=== PATIENT | male | born 1995 | race Two or more races ===

== ENCOUNTER 2019-07-25 08:51 | Emergency (ER) | payer SELFPAY ==
[2019-07-25 09:06] VITALS: TEMP 97.8; BMI 22.7
--- NOTE | 2019-07-25 09:53 | PDOC ---
Documentation entered by Lida Pyle SCRIBE, acting as scribe for Lizzie Pandey MD. Lizzie Pandey MD: This documentation has been prepared by the Edenilson mcfarlane Adrianna, SCRIBE, under my direction and personally reviewed by me in its entirety. I confirm that the documentation accurately reflects all work, treatment, procedures, and medical decision making performed by me. Attending Attestation - Resident Resident Name: Nigel Sosa - ED Attending Attestation I have performed the following: I have examined & evaluated the patient, The case was reviewed & discussed with the resident, I agree w/resident's findings & plan, Exceptions are as noted - HPI HPI: 07/25/19 09:39 24 yo with h/o etoh abuse, here with c/o etoh withdrawals. was last sober in may 2019, however only lasted on month. pt reports heavy daily etoh use, last drink was Monday 4 days prior. drinks 12 pack / day . no h/o withdrawal seizures in the past. no h/o hallucinations. pt denies recent trauma. denies other drug use. but states he been having decreased sensation in this right leg and ringing in his ears. no n/v no f/c no abd pain. no other complaints. states he would like to go to detox. - Physicial Exam PE: 07/25/19 09:50 awake alert head atraumatic. lungs clear bilat heart rrr no mrg abd soft nt nd ext wwp no edema. no calf tenderness. skin warm and dry. nueor alert oriente x 3. - Medical Decision Making 07/25/19 09:51 24 yo male h/o etoh abuse here with c/o shakes, paresthesia and auditory tinnitus. differential salicilyate toxicity, electrolyte abnormality, dehydration, nueropathy, no mildline spinal tenderness and normal nuerological exam. plan labs electrolytes salicilyte magnesium iv hydration thiamine folate and multivitamin. if all cleared medically will send to [facility] for desired detox / rehab.
[2019-07-25] MEDS ORDERED: THIAMINE HCL 100 MG TABLET (FP) PO ONE (09:58)
[2019-07-25] MEDS ORDERED: SODIUM CHLORIDE 1,000 ML IV STA (09:58)
[2019-07-25] MEDS ORDERED: FOLIC ACID 1 MG TABLET (FP) PO ONE (09:58)
[2019-07-25] MEDS ORDERED: THIAMINE HCL 100 MG TABLET (FP) ONE (10:10)
[2019-07-25] MEDS ORDERED: FOLIC ACID 1 MG TABLET (FP) ONE (10:10)
--- NOTE | 2019-07-25 10:17 | PDOC ---
History of Present Illness - General Chief Complaint: Alcohol intoxication Stated Complaint: DETOX Time Seen by Provider: 07/25/19 09:18 - History of Present Illness Initial Comments: 07/25/19 09:58 24m with pmh of alcoholism presents to the ed for alcohol detox. He states that he was sent from [facility] ([facility] to get [facility]. He usually drinks 6x 24oz beers a day for 4 years, briefly stopped ffor a month in May but resumed in June. His last drink was Monday (3 days ago) The last time he stopped drinking he experience some tremulousness but not as much as he does now and he did not require any medication. Today he does endorse pins and needles sensation to the right lower extremity and tinnitis as well as general anxiety. He denies nausea, vomiting, visual disturbances, headaches, recent trauma or other drugs use or medications. 07/25/19 11:04 Patient admits that he went to [facility] last night and he was given Benzos before being discharged with the recommendation to go to [facility] for detox today. Past History - Past Medical History Allergies/Adverse Reactions: Allergies Allergy/AdvReac Type Severity Reaction Status Date / Time No Known Allergies Allergy Verified 07/25/19 09:58 Home Medications: Ambulatory Orders NK [No Known Home Medication] 07/25/19 COPD: No - Immunization History Immunization Up to Date: Yes - Suicide/Smoking/Psychosocial Hx Smoking History: Never smoked Information on smoking cessation initiated: No Hx Alcohol Use: No Drug/Substance Use Hx: No Review of Systems - Review of Systems Able to Perform ROS?: Yes Is the patient limited Korean proficient: No Constitutional: No: Symptoms Reported HEENTM: Yes: See HPI, Tinnitus Respiratory: No: Symptoms reported Cardiac (ROS): No: Symptoms Reported ABD/GI: No: Symptoms Reported : No: Symptoms Reported Musculoskeletal: Yes: See HPI Integumentary: No: Symptoms Reported Neurological: Yes: Paresthesia, Tingling, Tremors. No: Headache, Seizure, Dizziness Psychiatric: Yes: Anxiety Endocrine: No: Symptoms Reported All Other Systems: Reviewed and Negative *Physical Exam - Vital Signs Last Vital Signs Temp Pulse Resp BP Pulse Ox 97.8 F 82 17 132/78 99 07/25/19 09:04 07/25/19 09:04 07/25/19 09:04 07/25/19 09:04 07/25/19 09:04 - Physical Exam General Appearance: Yes: Nourished, Appropriately Dressed. No: Apparent Distress, Alcohol on Breath, Intoxicated HEENT: positive: Other (Tongue fasciculations mild) Respiratory/Chest: positive: Lungs Clear, Normal Breath Sounds. negative: Chest Tender, Respiratory Distress Cardiovascular: positive: Regular Rhythm, Regular Rate, S1, S2 Gastrointestinal/Abdominal: positive: Normal Bowel Sounds, Flat, Soft. negative : Tender Musculoskeletal: positive: Normal Inspection. negative: CVA Tenderness Extremity: positive: Normal Inspection, Normal Range of Motion Integumentary: positive: Other (mild diaphoresis over the forehead) Neurologic: positive: Fully Oriented, Alert, Normal Mood/Affect, Normal Response , Motor Strength 5/5, Responsive, Finger to Nose. negative: EOM Palsy, Facial Droop, Sensory Deficit (but exacerbated pins and needles over palpation of the right foot. ) ED Treatment Course - LABORATORY CBC & Chemistry Diagram: 07/25/19 10:03 07/25/19 10:03 Medical Decision Making - Medical Decision Making 07/25/19 10:20 24m with h/o alcoholism presents with alcohol withdrawal symptoms. CIWA score of 13. Neuro exam consistent with withdrawal, no recent trauma or spinal tenderness. No concomitant IV drug use that might suggest spinal abscess. Will still obtain labs including electrolytes and magnesium, and give patient NS bolus, Ativan, and PO thiamine and Folate. Will try to obtain bed at [facility] to continue detox. 07/25/19 12:[address] Montiel at [facility] who will gladly see the patient when he arrives. Patient to leave with security. *DC/Admit/Observation/Transfer Diagnosis at time of Disposition: Admitted to alcohol detoxification center, Alcohol withdrawal - Discharge Dispostion Disposition: HOME Condition at time of disposition: Improved Decision to Admit order: No - Referrals - Patient Instructions Printed Discharge Instructions: DI for Drug or Alcohol Withdrawal, DI for Alcohol Abuse Additional Instructions: Good luck with the continuation of your alcohol detoxification at [facility]! Come back to the emergency department for any new, worsening or concerning symptoms. - Post Discharge Activity
[2019-07-25 10:21] LABS: BASO % 0.5 % (0-2.0); EOS % 4.1 % (0-4.5); HEMATOCRIT 43.6 % (35.4-49); HEMOGLOBIN 15.1 GM/dL (11.7-16.9); LYMPH % 17.8 % (8-40); MCH 31.2 pg (25.7-33.7); MCHC 34.7 g/dl (32.0-35.9); MEAN CELL VOLUME 89.8 fl (80-96); MEAN PLT VOLUME 7.6 fl (7.5-11.1); MONO % 14.4 % (3.8-10.2); NEUT % 63.2 % (42.8-82.8); PLATELET COUNT 207 K/MM3 (134-434); RBC 4.86 M/mm3 (4.00-5.60); RDW 13.5 % (11.9-15.9); WHITE BLOOD COUNT 6.3 K/mm3 (4.0-10.0)
[2019-07-25] MEDS ORDERED: LORazepam 2 MG/ML SDV VIAL ONE (10:30)
[2019-07-25 10:50] LABS: COCAINE, UR NEGATIVE ng/ml (CUTOFF=300); METHADONE, UR NEGATIVE ng/ml (CUTOFF=300); OPIATES, URI NEGATIVE ng/ml (CUTOFF=300); PHENCYCLIDINE,URINE NEGATIVE ng/ml (CUTOFF=25); URINE AMPHETAMINES NEGATIVE ng/ml (CUTOFF=500); URINE BARBITURATES NEGATIVE ng/ml (CUTOFF=200)
[2019-07-25 10:51] LABS: URINE BENZODIAZEPINES POSITIVE ng/ml (CUTOFF=200)
[2019-07-25 10:52] LABS: ALBUMIN 4.2 g/dl (3.4-5.0); BILIRUBIN,TOTAL 0.9 mg/dL (0.2-1); CALCIUM 9.6 mg/dL (8.5-10.1); CREATININE 0.7 mg/dL (0.55-1.3); POTASSIUM 3.9 mmol/L (3.5-5.1); TOT PROT 7.9 g/dl (6.4-8.2)
[2019-07-25 12:14] VITALS: BP 108/82; PULSE 70
== END 2019-07-25 12:27 | disposition home or self-care (01) ==
LOC: JER 08:51
PROC: 3E0337Z Introduction of Electrolytic and Water Balance Substance into Peripheral Vein, Percutaneous Approach (ICD-10-PCS; principal; 2019-07-25)
PROC: 3E033NZ Introduction of Analgesics, Hypnotics, Sedatives into Peripheral Vein, Percutaneous Approach (ICD-10-PCS; 2019-07-25)
DX: F10.230 Alcohol dependence with withdrawal, uncomplicated (principal); F41.9 Anxiety disorder, unspecified
CPT/HCPCS: 36415; 80053; 80307; 83735; 85025; 99283-25; J7030

== ENCOUNTER 2019-07-25 13:43 | Inpatient (IN) | payer SELFPAY ==
--- NOTE | 2019-07-25 16:41 | HP ---
CIWA Score Nausea/Vomitin-Mild Nausea/No Vomiting Muscle Tremors: 7-Severe,w/o Arm Extended Anxiety: 2 Agitation: 2 Paroxysmal Sweats: 1-Minimal Palms Moist Orientation: 0-Oriented Tacttile Disturbances: 0-None Auditory Disturbances: 0-None Visual Disturbances: 0-None Headache: 2-Mild CIWA-Ar Total Score: 15 - Admission Criteria [facility]ASAS Guidelines: Admission for Medically Managed Detox: Requires at least one of the followin. CIWA greater than 12 2. Seizures within the past 24 hours 3. Delirium tremens within the past 24 hours 4. Hallucinations within the past 24 hours 5. Acute intervention needed for co occurring medical disorder 6. Acute intervention needed for co occurring psychiatric disorder 7. Severe withdrawal that cannot be handled at a lower level of care (continued vomiting, continued diarrhea, abnormal vital signs) requiring intravenous medication and/or fluids 8. Admission ROS [facility] Chief Complaint: alcohol detox Allergies/Adverse Reactions: Allergies Allergy/AdvReac Type Severity Reaction Status Date / Time No Known Allergies Allergy Verified 07/25/19 09:58 History of Present Illness: 24 yo m with pmh of alchohol use disorder presenting here for alcohol detox. He states that he was sent from [facility] ([facility] to get detox. He usually drinks 6x 24oz beers a day for 4 years, briefly stopped for a month in May but resumed in June. His last drink was Monday (3 days ago) He went to the ER today. They gave him ativan and sent him here. Never had seizures, blacked out. Denies drug use. Works as a manager training. Lives in an apartment. - Ebola screening Have you traveled outside of the country in the last 21 days: No (N) Have you had contact with anyone from an Ebola affected area: No Do you have a fever: No - Review of Systems Constitutional: Loss of Appetite, Unintentional Wgt. Loss EENT: reports: Other (b/l redness of eyes) Respiratory: denies: Cough, Shortness of Breath Cardiac: denies: Chest Pain, Palpitations Patient History - Patient Medical History Hx Chronic Obstructive Pulmonary Disease (COPD): No - Smoking Cessation Smoking history: Never smoked Hx Chewing Tobacco Use: No - Substances abused Alcohol Substance route: Oral Frequency: Daily Amount used: 3 24 oz beers Age of first use: 15 Date of last use: 07/23/19 Family Disease History - Family Disease History Family History: Denies Admission Physical Exam [facility] - Physical General Appearance: Yes: Tremorous Respiratory: Yes: No Respiratory Distress, No Accessory Muscle Use Abdominal: Yes: Non Tender, Soft Extremities: Yes: Tremors. No: Swelling - Diagnostic (1) Alcohol withdrawal Current Visit: No Status: Acute Inpatient Rehab Admission - Rehab Decision to Admit Inpatient rehab admission?: No
[2019-07-25] MEDS ORDERED: METHOCARBAMOL 500 MG TABLET PO PRN (16:51)
[2019-07-25] MEDS ORDERED: MAG HYDROX/AL HYDROX/SIMETH 30 ML UNIT-DOSE CUP PO PRN (16:51)
[2019-07-25] MEDS ORDERED: MAGNESIUM CITRATE 300 ML BOTTLE PO PRN (16:51)
[2019-07-25] MEDS ORDERED: hydrOXYzine PAMOATE 25 MG CAPSULE (FP) PO PRN (16:51)
[2019-07-25] MEDS ORDERED: MELATONIN 5 MG TABLETS PO PRN (16:51)
[2019-07-25] MEDS ORDERED: chlordiazePOXIDE HCL 25 MG CAPSULE PO PRN (16:51)
[2019-07-25] MEDS ORDERED: BISMUTH SUBSALICYLATE 524 MG/30 ML UD PO PRN (16:51)
[2019-07-25] MEDS ORDERED: ACETAMINOPHEN 325 MG TABLET (FP) PO PRN ×2 (16:51)
[2019-07-25] MEDS ORDERED: MENTHOL/PHENOL 1 EACH UD MM PRN (16:51)
[2019-07-25] MEDS ORDERED: MAGNESIUM HYDROX 2400MG/30ML ORAL SUSPENSION 30 ML CUP PO PRN (16:51)
[2019-07-25] MEDS ORDERED: IBUPROFEN 400 MG TABLET (FP) PO PRN (16:51)
--- NOTE | 2019-07-25 16:54 | PN ---
Teaching Attending Note Name of Resident: Charmaine Meza ATTENDING PHYSICIAN STATEMENT I saw and evaluated the patient. I reviewed the resident's note and discussed the case with the resident. I agree with the resident's findings and plan as documented. SUBJECTIVE: 24 yo came here from [facility] ER for detox from alcohol- drinks 6 24 oz of beer. Last drink 3 days ago- pt tremulous OBJECTIVE: ME 84/temp 97.5 tremulous alert and oriented ASSESSMENT AND PLAN: Alcohol use disorder- start librium detox protocol
[2019-07-25 17:48] VITALS: BMI 22.8
[2019-07-25] MEDS: chlordiazePOXIDE HCL 25 MG CAPSULE PO SCH ×2 (18:38→22:27)
[2019-07-25] MEDS ORDERED: THIAMINE HCL 100 MG TABLET (FP) PO SCH (22:00)
[2019-07-26] MEDS: chlordiazePOXIDE HCL 25 MG CAPSULE PO SCH ×2 (05:35→10:05)
[2019-07-26 09:37] VITALS: BP 131/76; PULSE 101; TEMP 98.3
[2019-07-26 09:59] LABS: HEMATOCRIT 42.8 % (35.4-49); HEMOGLOBIN 14.7 GM/dL (11.7-16.9); MCH 30.9 pg (25.7-33.7); MCHC 34.2 g/dl (32.0-35.9); MEAN CELL VOLUME 90.1 fl (80-96); MEAN PLT VOLUME 7.9 fl (7.5-11.1); PLATELET COUNT 212 K/MM3 (134-434); RBC 4.75 M/mm3 (4.00-5.60); RDW 13.5 % (11.9-15.9); WHITE BLOOD COUNT 5.7 K/mm3 (4.0-10.0)
[2019-07-26] MEDS ORDERED: PRENATAL VITAMINS W/ FOLIC ACID TABLET (FP) PO SCH (10:00)
[2019-07-26 10:08] LABS: BILIRUBIN,TOTAL 1.3 mg/dL (0.2-1); BLOOD UREA NITROGEN 6.6 mg/dL (7-18); CALCIUM 9.5 mg/dL (8.5-10.1); CREATININE 0.6 mg/dL (0.55-1.3); POTASSIUM 4.1 mmol/L (3.5-5.1); TOT PROT 7.4 g/dl (6.4-8.2)
--- NOTE | 2019-07-26 11:03 | PN ---
[facility] CIWA - CIWA Score Nausea/Vomitin-No Nausea/No Vomiting Muscle Tremors: 2 Anxiety: 1-Mildly Anxious Agitation: 0-Normal Activity Paroxysmal Sweats: No Perspiration Orientation: 0-Oriented Tacttile Disturbances: 0-None Auditory Disturbances: 0-None Visual Disturbances: 0-None Headache: 0-None Present CIWA-Ar Total Score: 3 [facility] Progress Note (SOAP) Subjective: Patient without few complaints. Objective: 07/26/19 10:50 BP:131/76 P:101 R:18 T:98.3 Assessment: 07/26/19 10:51 1. Alcohol Use Disorder 2. Minor abnormal labs Plan: 1. Will speak to patient with regards to whether he wants to continue detox or go to rehab today. But if there is a bed available for rehab here then he can go to rehab here or [facility]. 2. Abnormal labs noted.
--- NOTE | 2019-07-26 14:50 | PN ---
[facility] Progress Note Note: pt does not know why he needs to be here and is feeling fine. pt no longer meets criteria for detox pt was offered to go to rehab but pt refused. pt [facility] to go [facility]. pt was discharged today.
--- NOTE | 2019-07-26 14:52 | DS ---
[facility] Detox Discharge Summary Admission Date: 07/25/19 Discharge Date: 07/26/19 - History Present History: Alcohol Dependence - Physical Exam Results Vital Signs: Vital Signs Temperature 98.3 F 07/26/19 09:36 Pulse Rate 101 H 07/26/19 09:36 Respiratory Rate 18 07/26/19 09:36 Blood Pressure 131/76 07/26/19 09:36 O2 Sat by Pulse Oximetry (%) - Treatment Hospital Course: Detox Protocol Followed, Detoxed Safely, Responded well, Discharged Condition Good, Rehab Referral Accepted - Medication Discharge Medications: Ambulatory Orders NK [No Known Home Medication] 07/25/19 - Diagnosis (1) Alcohol withdrawal Status: Acute Qualifiers: Complication of substance-induced condition: uncomplicated Qualified Code(s ): F10.230 - Alcohol dependence with withdrawal, uncomplicated - AMA Did Patient Leave Against Medical Advice: No
[2019-07-27] MEDS ORDERED: chlordiazePOXIDE HCL 25 MG CAPSULE PO SCH (05:00)
--- NOTE | 2019-07-27 11:35 | EKG ---
Test Reason : Blood Pressure : / mmHG Vent. Rate : 074 BPM Atrial Rate : 074 BPM P-R Int : 156 ms QRS Dur : 112 ms QT Int : 378 ms P-R-T Axes : 072 076 049 degrees QTc Int : 419 ms NORMAL SINUS RHYTHM NORMAL ECG NO PREVIOUS ECGS AVAILABLE Confirmed by FLORENTINO MANCUSO MD ([id number]) on 07/27/2019 11:34:56 AM Referred By: Confirmed By:FLORENTINO MANCUSO MD
[2019-07-28] MEDS ORDERED: chlordiazePOXIDE HCL 10 MG CAPSULE PO PRN
[2019-07-28] MEDS ORDERED: chlordiazePOXIDE HCL 10 MG CAPSULE PO SCH (05:00)
[2019-07-29] MEDS ORDERED: chlordiazePOXIDE HCL 10 MG CAPSULE PO SCH (05:00)
[2019-07-30] MEDS ORDERED: chlordiazePOXIDE HCL 10 MG CAPSULE PO ONE (05:00)
== END 2019-07-26 12:00 | disposition home or self-care (01) | DRG 775 ==
LOC: YASAS 13:43 → Y6N 17:30
PROVIDERS: ADMIT Surgery; ATTEND Surgery
PROC: HZ2ZZZZ Detoxification Services for Substance Abuse Treatment (ICD-10-PCS; principal; 2019-07-25)
DX: F10.230 Alcohol dependence with withdrawal, uncomplicated (principal)
CPT/HCPCS: 36415; 80053; 85027; 86480; 86593; 93005; 93010